=== PATIENT | male | born 1960 | race Caucasian/White ===

== ENCOUNTER 2024-06-19 19:28 | Emergency (ER) | payer SELFPAY ==
[2024-06-19] MEDS: Lidocaine 1% 5 ML VIAL INJECT ONE ×2 (20:03→22:00)
[2024-06-19 20:11] VITALS: BP 96/69; PULSE 85
[2024-06-19] MEDS: Diphtheria,Pertussis(Acell),Tetanus Vaccine 0.5 ML Syringe IM ONE (20:57)
[2024-06-19] MEDS: Cephalexin 250 MG Cap PO ONE (22:57)
== END 2024-06-19 22:58 | disposition home or self-care (01) ==
LOC: JP.ED 19:28
DX: S62.632B Displaced fracture of distal phalanx of right middle finger, initial encounter for open fracture (principal); F17.210 Nicotine dependence, cigarettes, uncomplicated; Z23 Encounter for immunization; W01.198A Fall on same level from slipping, tripping and stumbling with subsequent striking against other object, initial encounter; W23.0XXA Caught, crushed, jammed, or pinched between moving objects, initial encounter; Y92.002 Bathroom of unspecified non-institutional (private) residence as the place of occurrence of the external cause
CPT/HCPCS: 64450; 73140; 90471; 90715; 99283; A9270; 99284